=== PATIENT | female | born 1975 | race American Indian/Alaskan Native ===

== ENCOUNTER 2017-06-28 14:27 | Outpatient (CLI) | payer BC ==
--- NOTE | 2017-06-28 16:25 | Mammography Report ---
Bilateral diagnostic mammogram with CAD and targeted left breast ultrasound. History: Palpable lump in the left breast in a patient with a history of previous breast reduction surgery. No prior mammograms are available. Findings: There are scattered fibroglandular densities bilaterally. In the right breast, there is an area of amorphous calcification in the upper-outer quadrant of the right breast typical of fat necrosis related to previous surgery. No suspicious microcalcifications are seen. A second smaller area of amorphous calcification is seen in the upper outer quadrant as well. Left breast demonstrates no focal masses or other suspicious findings. Sonographic evaluation of the area of palpable abnormality in the left breast demonstrates no evidence of a cystic or solid mass. Impression: No suspicious findings. Benign calcifications related to previous breast reduction surgery are noted in the right breast. BI-RADS code: 2. Recommendation: Annual screening.
== END 2017-06-28 14:28 | disposition home or self-care (01) ==
LOC: SPVWC 14:27
PROVIDERS: ATTEND Physician Assistant
DX: N63 Unspecified lump in breast (principal); N64.4 Mastodynia; Z98.890 Other specified postprocedural states; R92.1 Mammographic calcification found on diagnostic imaging of breast
CPT/HCPCS: 76642; G0204; 77066